=== PATIENT | male | born 1980 | race African-American/Black ===

== ENCOUNTER 2016-09-15 11:40 | Emergency (ER) | payer OTHER ==
[~2016-09-15] VITALS: Ht 175.3 cm; Wt 81.8 kg
[2016-09-15 14:00] VITALS: BP 133/88
[2016-09-15] MEDS ORDERED: TYLENOL WITH C1 EACH PO (16:02)
== END 2016-09-15 16:17 | disposition home or self-care (01) ==
LOC: EME 11:40
PROC: 0SSDXZZ Reposition Left Knee Joint, External Approach (ICD-10-PCS; principal; 2016-09-15)
DX: S83.015A Lateral dislocation of left patella, initial encounter (principal); X50.1XXA Overexertion from prolonged static or awkward postures, initial encounter
CPT/HCPCS: 73560; 73564; 99281; 99285; J3010